=== PATIENT | male | born 1995 ===

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

== ENCOUNTER 2017-11-06 13:05 | Emergency (ER) | payer OTHER ==
[2017-11-06 13:58] VITALS: RESP 18; TEMP 98.3; O2SAT 100
[2017-11-06 14:00] VITALS: BMI 24.3
--- NOTE | 2017-11-06 15:10 | ED PDOC ---
Arrival/HPI - General Chief Complaint: Upper Extremity Problem/Injury Time Seen by Provider: 11/06/17 14:52 Historian: Patient - History of Present Illness Narrative History of Present Illness (Text): 11/06/17 15:05 21-year-old male presents today with right shoulder and right upper arm pain. Patient states pain started this morning. Patient denies any trauma or injury. Patient states he was at work yesterday and was feeling okay. Patient states today when he woke up he had pain with range of motion of the right arm. Patient states the pain is in the upper arm and in the shoulder and is worse with abduction. He denies numbness weakness or tingling in the extremity. No medications have been taken for pain at home.Patient denies chest pain or shortness of breath. No fevers or chills. no other complaints. Symptom Onset: Sudden Symptom Course: Unchanged Quality: Aching Severity Level: Mild Past Medical History - Provider Review Nursing Documentation Reviewed: Yes - Travel History Have you recently traveled outside [place] w/in the past 3 mons?: No - Infectious Disease Hx of Infectious Diseases: None - Psychiatric Hx Psychophysiologic Disorder: No Hx Substance Use: No Family/Social History - Physician Review Nursing Documentation Reviewed: Yes Family/Social History: Unknown Family HX Smoking Status: Never Smoked Hx Alcohol Use: No Hx Substance Use: No Allergies/Home Meds Allergies/Adverse Reactions: Allergies No Known Allergies Allergy (Verified 11/06/17 14:06) Review of Systems - Review of Systems Constitutional: absent: Fatigue, Fevers Respiratory: absent: SOB, Cough Cardiovascular: absent: Chest Pain, Palpitations Gastrointestinal: absent: Abdominal Pain, Nausea, Vomiting Genitourinary Male: absent: Dysuria Musculoskeletal: Arthralgias. absent: Back Pain Skin: absent: Rash, Pruritis Psychiatric: absent: Anxiety, Depression Physical Exam Vital Signs Reviewed: Yes Vital Signs Temp Pulse Resp BP Pulse Ox 11/06/17 13:58 98.3 F 67 18 142/75 100 Temperature: Afebrile Blood Pressure: Normal Pulse: Regular Respiratory Rate: Normal Appearance: Positive for: Well-Appearing, Non-Toxic, Comfortable Pain Distress: None Mental Status: Positive for: Alert and Oriented X 3 - Systems Exam Head: Present: Atraumatic Mouth: Present: Moist Mucous Membranes Neck: Present: Normal Range of Motion. No: MIDLINE TENDERNESS, Paraspinal Tenderness Respiratory/Chest: Present: Clear to Auscultation, Good Air Exchange. No: Respiratory Distress, Accessory Muscle Use Cardiovascular: Present: Regular Rate and Rhythm, Normal S1, S2. No: Murmurs Back: Present: Normal Inspection Upper Extremity: Present: Normal ROM, NORMAL PULSES, Tenderness (right arm; + ttp over anterior lateral aspect of shoulder; no edema, no erythema; no ecchymosis; + ttp over lateral proximal humerus. no edema, full rom of elbow, hand wrist, sensation and distal pulses intact; muscle strenght 5/5. cap refill <2. ), Neurovascularly Intact, Capillary Refill < 2s. No: Swelling, Erythema, Deformity Neurological: Present: GCS=15, Speech Normal Skin: Present: Warm, Dry, Normal Color Psychiatric: Present: Alert, Oriented x 3 Medical Decision Making ED Course and Treatment: 11/06/17 15:15 Patient nontoxic well-appearing in no distress with stable vital signs X-rays of the right shoulder; no fracture xray of the right humerus; no fracture toradol IM I discussed all results with patient advised to followup with the orthopedist for the next 2 days. Return if symptoms worsen persist or new symptoms develop i advised the patient that although the xrays show no fracture; there is still a possibility for ligamentous or tendon injury the patient must see the orthopedist for further evaluation. Patient verbalizes understanding of discharge instructions and need for immediate followup. all aspects of this case were discussed the attending of record. Impression: shoulder pain. Motrin every 6 hours as needed for pain Rest, ice, compression, elevation Followup with the orthopedist within the next 2 days Followup with primary care physician within the next 2 days Return if any other concerning symptoms develop Reassessment Condition: Re-examined, Improved - RAD Interpretation Radiology Orders: 11/06/17 14:52 HUMERUS RIGHT [RAD] Stat SHOULDER RIGHT [RAD] Stat - Medication Orders Current Medication Orders: Discontinued Medications Ketorolac Tromethamine (Toradol) 60 mg IM STAT STA Stop: 11/06/17 14:54 Disposition/Present on Arrival - Present on Arrival Any Indicators Present on Arrival: No History of DVT/PE: No History of Uncontrolled Diabetes: No Urinary Catheter: No History of Decub. Ulcer: No History Surgical Site Infection Following: None - Disposition Have Diagnosis and Disposition been Completed?: Yes Diagnosis: Shoulder pain Disposition Time: 15:17 Patient Plan: Discharge Patient Problems: Current Active Problems Problem Status Onset Shoulder pain Acute Condition: GOOD Discharge Instructions (ExitCare): Shoulder Pain (DC) Additional Instructions: Motrin every 6 hours as needed for pain Rest, ice, compression, elevation Followup with the orthopedist within the next 2 days Followup with primary care physician within the next 2 days Return if any other concerning symptoms develop Prescriptions: Ibuprofen [Motrin] 600 mg PO Q6H PRN #20 tab PRN Reason: pain/fever reduction Referrals: Coby Domingo MD [Staff Provider] - Follow up with primary Gabriel Gonzalez MD [Primary Care Provider] - Follow up with primary [facility] [place] [Outside] - Follow up with primary [facility] [Outside] - Follow up with primary Forms: [employer] (Tristanian), WORK NOTE
--- NOTE | 2017-11-06 15:28 | RAD ---
Date of service: 11/06/2017 PROCEDURE: Radiographs of the Right Shoulder HISTORY: shoulder pain COMPARISON: No prior. FINDINGS: BONES: Normal. No fracture. JOINTS: Normal. Glenohumeral and acromioclavicular joints preserved. No osteoarthritis. SOFT TISSUES: Normal. OTHER FINDINGS: None. IMPRESSION: Normal radiographs of the right shoulder.
--- NOTE | 2017-11-06 15:28 | RAD ---
PROCEDURE: Radiographs of the right humerus. HISTORY: pain to upper arm COMPARISON: None. FINDINGS: BONES: Normal. No fracture or focal lesion. SOFT TISSUES: Normal. OTHER FINDINGS: None. IMPRESSION: Normal radiographs of right humerus.
[2017-11-06 15:36] VITALS: BP 113/60; PULSE 53
== END 2017-11-06 15:51 | disposition home or self-care (01) ==
LOC: ED 13:05
DX: M25.511 Pain in right shoulder (principal)
CPT/HCPCS: 73030; 73060; 96372; 99285; J1885